=== PATIENT | female | born 1955 | race Caucasian/White ===

== ENCOUNTER → 2016-09-22 | Outpatient (CLI) | payer BC ==
[~2016-09-22] MED LIST: BACITRACIN15 G1 TP; BENICAR HCT 201 EACH PO; COLACE-DPS100 MG PO; LUBRICANT EYE D10 ML OU; NASONEX NASAL S17 GM NS; ROBITUSSIN100 MG/5 M PO; SYNTHROID DPS0.1 MG PO; THERA-M1 EACH PO
== END | disposition home or self-care (01) ==
LOC: PTH.S 10:08
DX: Z01.818 Encounter for other preprocedural examination (principal); I10 Essential (primary) hypertension; I45.10 Unspecified right bundle-branch block; R94.31 Abnormal electrocardiogram [ECG] [EKG]; Z79.899 Other long term (current) drug therapy

== ENCOUNTER 2016-09-28 05:50 | Observation (INO) | payer BC ==
[~2016-09-28] VITALS: Ht 175.3 cm; Wt 122.0 kg
[2016-09-30] MEDS ORDERED: SYNTHROID DPS0.1 MG PO (16:35)
[2016-09-30] MEDS ORDERED: BENICAR HCT 201 EACH PO (16:35)
[2016-09-30] MEDS ORDERED: NASONEX NASAL S17 GM NS (16:35)
[2016-09-30] MEDS ORDERED: BACITRACIN15 G1 TP (16:36)
[2016-09-30] MEDS ORDERED: THERA-M1 EACH PO (16:36)
[2016-09-30] MEDS ORDERED: COLACE-DPS100 MG PO (16:37)
[2016-09-30] MEDS ORDERED: ROBITUSSIN100 MG/5 M PO (16:37)
[2016-09-30] MEDS ORDERED: LUBRICANT EYE D10 ML OU (16:38)
--- NOTE | 2016-10-05 06:36 | OR ---
ADMIT: 09/28/2016 RM/LOC: 628 [facility] MR#: [id number] [facility]#: [id number] [address] [place] [address] [address] [place] [address] Operative/Delivery Room Report SEX: F AGE: 61 : 1955 SURGERY DATE: 09/28/2016 SURGEON: Armin Sosa MD PREOPERATIVE DIAGNOSES: 1. Hypercalcemia consistent with primary hyperparathyroidism. 2. Right thyroid nodule. POSTOPERATIVE DIAGNOSES: 1. Papillary thyroid carcinoma, right thyroid lobe. 2. Parathyroid adenoma, right inferior. OPERATION: Neck exploration with removal of right inferior parathyroid gland, removal of right thyroid lobe for frozen section which confirmed the nodule of the thyroid consistent with papillary thyroid carcinoma, therefore total thyroidectomy was performed. Neck examination was carried out, levels 3 and 6 including tracheoesophageal groove and retroesophageal extending from inferior aspect of the submandibular triangle to level 6 bilateral with identification of lymph node right neck level six inferior aspect of the thyroid lobe removed and also sent for histologic examination. ANESTHESIA: General oral endotracheal. BLOOD LOSS: 50 mL. COMPLICATIONS: None. DESCRIPTION OF PROCEDURE: With the patient in supine position under general oral endotracheal anesthesia, her eyes were taped. Anterior neck was extended and exposed. The neck was prepped with ChloraPrep, allowed 3 minutes to dry. The patient was then draped sterilely. An incision was made following natural skin crease low in the neck through skin and subcutaneous tissue and platysma muscle and skin flaps were elevated subplatysmally superiorly and inferiorly exposing the strap muscles which were then in the midline. This allowed identification of the thyroid gland. The left thyroid lobe and neck were first explored as her preoperative MRI scan suggested possible adenoma of the parathyroid left inferior in the region a left inferior parathyroid gland were two nodules, both of which appeared to arise from the posterior aspect of the thyroid gland. Each was excised and each sent for histologic examination by frozen section which confirmed the tissue disruption and benign-appearing thyroid tissue. The left lobe of the thyroid was multinodular, it was rotated medially and the left neck was explored in the classic locations for the inferior and superior parathyroid glands which included the tracheoesophageal groove and the retroesophageal region. No abnormalities were identified to the parathyroid gland. The right lobe of the thyroid was then exposed. It contained a nodule with preoperative anticipation of right thyroid lobectomy with frozen section. This was carried out. The inferior and superior thyroid artery and veins and middle thyroid vein were identified, clamped, divided, and coagulated. The gland was rotated medially. Tissue consistent with the ADMIT: 09/28/2016 RM/LOC: [address]28 [facility] MR#: [id number] [id number] [address] [place] [address] [place] [address] Operative/Delivery Room Report SEX: F AGE: 61 : 1955 inferior and superior parathyroid glands were identified. The right inferior had a fatty degeneration appearance with total dimension approximately 1 x 2 cm. The predominant of which appeared to be fat, but the superior parathyroid tissue appeared of normal size. The right lobe of the thyroid was removed. The recurrent laryngeal nerve identified, its identity and function confirmed intact by NIM-2 stimulation and the gland was pedicled at Fabián's ligament which was transected. The isthmus was then transected and the right thyroid lobe was sent for histologic examination. It contained a dominant nodule in its mid portion along the posterior aspect of the gland. The right neck was then explored thoroughly along the levels 3 through 6 including the tracheoesophageal groove and the retroesophageal tissues extending to the inferior to the level of the clavicle and the manubrial notch. No other abnormalities were identified pertaining to the parathyroid glands. The enlarged right inferior parathyroid tissue was then removed and sent for histologic examination. Results of the right thyroid lobe confirmed presence of a papillary thyroid carcinoma. Therefore, total thyroidectomy was performed. The left lobe was removed very similar to that of the right and following thyroidectomy, this allowed good visualization of the parathyroid beds. A nodule in the right inferior lobe area was identified as a small lymph node, less than 1 cm. This was excised and sent for histologic examination by permanent sections. No other adenopathy was identified in the right or left neck. The frozen section of the parathyroid appearing tissue confirmed that it represent a parathyroid gland with meticulous extent of expiration and no other parathyroid abnormalities identified. The wounds were irrigated with saline and the operation was completed. The recurrent laryngeal nerves on both sides were identified during the dissection. They were skeletonized along the tracheoesophageal groove extending to level 6 and there was good visualization throughout the procedure. NIM-2 stimulation confirmed the function of each recurrent laryngeal nerve intact. A 7 mm Nicolas-Carter drain was placed, brought out the wound. The wound was closed in layers with 3-0 chromic catgut to the midline strap muscles, inverted simple stitches to the platysmal layer, and a running horizontal mattress suture to the skin. The drain was sutured to the skin with silk and a thyroid dressing applied. She tolerated this very well. She emerged from general anesthesia the operating room, was extubated in the operating room, and transferred to the recovery room in good condition. Experienced no stridor nor airway distress. Armin Sosa MD/ saud JOB #: [id number] CC: Armin Sosa MD, Attending Physician Geovanna Mathur MD, Family Physician
--- NOTE | 2016-10-19 08:04 | HP ---
ADMIT: 09/28/2016 RM/LOC: [facility] MR#: [id number] [id number] [address] [place] [address] [address] [place] [address] Pre-OP History and Physical SEX: F AGE: 61 : 1955 DATE OF SERVICE: HISTORY OF PRESENT ILLNESS: Ms. Dc is 61 years old. She is admitted at this time for neck exploration in treatment of elevated serum calcium and parathyroid hormone levels. She had been monitored over the last 2-3 years with elevated calciums which range from 11.4 to 12.5. In 2013, a PTH level was elevated at 155 and it has increased to 260, but sestamibi scan is negative for identifiable parathyroid adenoma. She has had thyroid and neck ultrasounds which shows a right-sided thyroid nodule and also nodules or abnormalities, posterior aspect of the left thyroid lobe. An MRI scan was also performed which confirms a right thyroid nodule and nodule posterior and inferior to the left thyroid lobe in a proper position for a parathyroid adenoma, but has more likely characteristics of a cyst. There is also a small lymph node in the left paratracheal region. No other neck masses were identified. Ms. Dc has symptoms of malaise, intermittent general ill-feeling predominantly related to abdominal symptoms. In light of the persistently elevated calcium and her elevated parathyroid hormone levels, I suspect her symptoms are related to primary hyperparathyroidism and hypercalcemia. The rationale for the surgical treatment, the risks involved including risk to the recurrent laryngeal nerves and risk of postop hypocalcemia have been discussed. We have also discussed recommendation for excisional biopsy of right thyroid nodule. If this proves malignant, total thyroidectomy will be carried out. She is in good understanding of the recommendations, the rationale, and the risks, is in acceptance of these, and she is admitted for general anesthesia. MEDICATIONS: Medications prior: 1. Benicar. 2. Nasonex. 3. Guaifenesin. ALLERGIES: PENICILLIN. PAST MEDICAL HISTORY: Tonsillectomy, elbow fracture repair, detached retina. HOSPITALIZATIONS: As a child for asthma, pneumonia, and nephritis. REVIEW OF SYSTEMS: Positive for history of asthma and hypertension. SOCIAL HISTORY: Drinks alcohol occasional. Does not drink caffeine. Does not use tobacco. She is not exposed to secondhand smoke. FAMILY HISTORY: No known anesthetic complications or coagulopathies. PHYSICAL EXAMINATION: GENERAL: A 61-year-old, 5 feet 9 inches, 268 pounds, BP 160/80, pulse 74. HEENT: Pupils are equal. No proptosis, exophthalmos, or lid retraction. Her ADMIT: 09/28/2016 RM/LOC: [facility] MR#: [id number] [id number] [address] [place] [address] [place] [address] Pre-OP History and Physical SEX: F AGE: 61 : 1955 ear canals, TMs, and middle ears are normal. Nose, airway patent. No mucus or purulence. Mouth and pharynx clear. Hypopharynx and larynx, good symmetry, structure, and function. NECK: No palpable masses, adenopathy, thyromegaly, nodules, or asymmetry. LUNGS: Clear. No wheeze. HEART: Rhythm regular. EXTREMITIES: Normal. IMPRESSION: 1. Hypercalcemia, probable primary due to parathyroid adenoma. 2. Right thyroid nodule. PLAN: 1. Neck exploration with removal of parathyroid adenoma. 2. Excisional biopsy, right thyroid nodule, with frozen section. Total thyroidectomy will be performed if malignancy is identified. Armin Sosa MD/ saud JOB #: [id number] CC: Armin Sosa, Attending Physician UNKNOWN, Family Physician
== END 2016-09-29 10:30 | disposition home or self-care (01) ==
LOC: WOR 05:50 → 6PED 05:50
PROVIDERS: ADMIT Otolaryngology
PROC: 0GTH0ZZ Resection of Right Thyroid Gland Lobe, Open Approach (ICD-10-PCS; principal; 2016-09-28)
PROC: 0GBP0ZZ Excision of Left Inferior Parathyroid Gland, Open Approach (ICD-10-PCS; principal; 2016-09-28)
PROC: 0GBN0ZZ Excision of Right Inferior Parathyroid Gland, Open Approach (ICD-10-PCS; principal; 2016-09-28)
PROC: 0GTG0ZZ Resection of Left Thyroid Gland Lobe, Open Approach (ICD-10-PCS; principal; 2016-09-28)
PROC: 07B10ZZ Excision of Right Neck Lymphatic, Open Approach (ICD-10-PCS; principal; 2016-09-28)
DX: C73 Malignant neoplasm of thyroid gland (principal); E04.9 Nontoxic goiter, unspecified; Z88.0 Allergy status to penicillin; J45.909 Unspecified asthma, uncomplicated; I10 Essential (primary) hypertension; Z98.890 Other specified postprocedural states

== ENCOUNTER → 2016-10-06 | Outpatient (CLI) | payer BC | END | disposition home or self-care (01) | LOC: RAD.S 10:17 | DX: R94.6 Abnormal results of thyroid function studies (principal) ==